=== PATIENT | male | born 1990 | race Caucasian/White ===

== ENCOUNTER 2016-11-02 12:59 | Emergency (ER) | payer MEDICARE ==
[~2016-11-02 12:59] MED LIST: BACLOFEN10 MG; BACLOFEN10 MG PO; STOOL SOFTENER50 MG; TYLENOL #3 PO
== END 2016-11-02 13:10 | disposition home or self-care (01) ==
LOC: SED 12:59
DX: T16.1XXA Foreign body in right ear, initial encounter (principal); Z88.8 Allergy status to other drugs, medicaments and biological substances
CPT/HCPCS: 69200; 99283